=== PATIENT | female | born 1990 | race Two or more races ===

== ENCOUNTER 2017-12-02 19:26 | Inpatient (IN) | payer OTHER ==
[~2017-12-02] VITALS: Ht 149.9 cm; Wt 45.4 kg
[2017-12-06] MEDS ORDERED: FLAGYL500MG PO (17:26)
[2017-12-06] MEDS ORDERED: CIPRO500 MG PO (17:26)
== END 2017-12-06 22:56 | DRG 379 ==
LOC: ER 19:26 → SEC-K 12-03 12:22
DX: K29.81 Duodenitis with bleeding (principal); D50.0 Iron deficiency anemia secondary to blood loss (chronic); K52.89 Other specified noninfective gastroenteritis and colitis

== ENCOUNTER → 2018-05-21 | Emergency (ER) | payer OTHER ==
[~2018-05-21] VITALS: Ht 157.5 cm; Wt 54.4 kg
[~2018-05-21] MED LIST: CIPRO500 MG PO; FLAGYL500MG PO
== END | disposition home or self-care (01) ==
LOC: ER 17:11
DX: N83.292 Other ovarian cyst, left side (principal); N83.291 Other ovarian cyst, right side